=== PATIENT | female | born 1985 | race Caucasian/White ===

== ENCOUNTER → 2018-05-17 | Outpatient (CLI) | payer OTHER | END | disposition home or self-care (01) | LOC: CFH 07:33 | PROVIDERS: ATTEND Nurse Practitioner Family | DX: R10.9 Unspecified abdominal pain (principal) | CPT/HCPCS: 76700 ==

== ENCOUNTER 2019-11-04 19:16 | Emergency (ER) | payer OTHER ==
[~2019-11-04] VITALS: Ht 175.3 cm; Wt 61.7 kg
[2019-11-04] MEDS ORDERED: KETOROLAC 30 MG/1 ML IVPush ONE (21:00)
[2019-11-04] MEDS ORDERED: ONDANSETRON 2MG/ML, 2ML IVPush ONE (21:00)
--- NOTE | 2019-11-04 21:22 | NUR ---
RN JUST TOOK OVER PT CARE FROM OFF GOING RN, LAB CALLED AND SAID THAT BLOOD THAT WAS SENTS WAS LABLED WRONG FROM PREVIOUS RN. VISITOR SERVICES REPRESENTATIVE HAS NOT SENT OR TOUCHED ANY LAB SAMPLES FROM THIS PT
[2019-11-04 22:00] LABS: BASOPHILS # (AUTO) 0.02 x10^3/uL (0-0.1); BASOPHILS % (AUTO) 0 % (0-1); EOSINOPHILS # (AUTO) 0.01 x10^3/uL (0-0.4); EOSINOPHILS % (AUTO) 0 % (1-7); LYMPHOCYTES # (AUTO) 0.53 x10^3/uL (1-3.4); LYMPHOCYTES % (AUTO) 5 % (22-44); MD NO; MEAN CORPUSCULAR HEMOGLOBIN 26.1 pg (27.0-34.8); MEAN CORPUSCULAR HGB CONC 31.8 g/dL (32.4-35.8); MEAN CORPUSCULAR VOLUME 82.3 fL (80-100); MEAN PLATELET VOLUME 7.4 fL (7.4-10.4); MONOCYTES # (AUTO) 0.29 x10^3/uL (0.2-0.8); MONOCYTES % (AUTO) 3 % (2-9); NEUTROPHILS # (AUTO) 10.13 x10^3/uL (1.8-6.8); NEUTROPHILS % (AUTO) 92 % (42-75); PLATELET COUNT 267 x10^3/uL (130-400); RED BLOOD COUNT 4.27 x10^6/uL (3.82-5.3); RED CELL DISTRIBUTION WIDTH 14.9 % (9.6-15.2)
[2019-11-04] MEDS ORDERED: KETOROLAC 30 MG/1 ML ONE (22:05)
[2019-11-04] MEDS ORDERED: ONDANSETRON 2MG/ML, 2ML ONE (22:05)
--- NOTE | 2019-11-04 22:10 | NUR ---
PT MEDICATION ADMINISTED PER EMAR, PT MED DELAYED DUE RECIVING PT FROM OFF GOING RN WITH MEDICATION NOT ORDERED AT 2049 WHEN RN TOOK REPORT AND RN HAVING TO PERFORM ULTRASOUND IV FOR ANOTHER RNS PT THAT TOOK A WHILE AND MULTIPLE PTS NEEDING PROLONGED RESTROOM ATTENTION WITH FAILED EQUIMENT AND PT BED CHANGE.
[2019-11-04 22:11] LABS: HCG UR SG 1.022 (1.003-1.030)
[2019-11-04 22:12] LABS: MICROSCOPIC INDICATED
[2019-11-04 22:12] LABS: ANION GAP 6 mmol/L (5-15); CALCIUM 8.8 mg/dL (8.5-10.1); CHLORIDE 110 mmol/L (98-107); CREATININE 0.92 mg/dL (0.55-1.02)
--- NOTE | 2019-11-05 00:01 | NUR ---
PT RESTING IN BED WITH PT FRIEND AT SIDE, PT HAS NO WANTS OR NEEDS AT THIS TIME. PT ON MONITOR,
[2019-11-05 00:36] VITALS: BP 122/59
== END 2019-11-05 00:38 | disposition home or self-care (01) ==
LOC: ED 22:20
DX: R10.32 Left lower quadrant pain (principal); R10.31 Right lower quadrant pain; N92.6 Irregular menstruation, unspecified; R11.2 Nausea with vomiting, unspecified
CPT/HCPCS: 36415; 74176; 80048; 81001; 81025; 85025; 96374; 96375; 99285; J1885; J2405